=== PATIENT | female | born 1995 | race Caucasian/White ===

== ENCOUNTER 2024-03-28 12:23 | Emergency (ER) | payer OTHER ==
--- OUTSIDE RECORDS SUMMARY | 2024-03-28 12:29 | XMS REPORT | Continuity of Care Document ---
Author Name Unknown Address [address] [place] [address] Nicolás. [address] thconnect Address [address] [facility] Nicolás. 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 SPECIALIST 94 ON 9 [id number] 2022 00:00:00 [facility] [id number] 2019 00:00:00 Allergies, Adverse Reactions, Alerts Allergy Name Allergy Type Status Severity Reaction(s) Onset Date Inactive Date Treating Clinician Comments Source NO KNOWN ALLERGIE S Drug Class Active [facility] Social History Social Habit Start Date Stop Date Quantity Comments Source ASSERTION Possible Ashlee Gutiérrez - External Gender identity Emily Gutiérrez - External Sexual orientation Citlalli Gutiérrez - External Tobacco use and exposure 2023-11-27 00:00:00 2023-11-27 00:00:00 Smokeless tobacco non-user Ashlee Gutiérrez - External History of Social function 2023-11-27 00:00:00 2023-11-27 00:00:00 Ashlee Gutiérrez - External Sex 2022-02-14 16:04:31 2022-02-14 16:04:31 Female (finding) Ashlee Martinmalcomkaty Maria Lorene Sex assigned at 1995 00:00:00 1995 00:00:00 Ashlee Martinmalcomkaty Candace Paulson Smoking Status Start Date Stop Date Source Tobacco smoking consumption unknown Ashlee Martinmalcomkaty Paulson Never smoked tobacco Ashlee Paulson Medications Ordered Medication Name Filled Medication Name Start Date Stop Date Current Medication? Ordering Clinician Indication Dosage Frequency Signature (SIG) Comments Components Source Triamcinolo ne Acetonide 0.1 % apply externally Ointment 2023-02 00:00: 00 Yes [id number] Apply to affected areas twice daily for 1 month. Ashlee sanford Metronidazo le 500 MG oral Tablet 2023-02 00:00: 00 Yes [id number] Take 1 pill PO BID. Ashlee sanford Amoxicillin -Pot Clavulanate 875-125 MG oral Tablet 07-18 00:00: 00 Yes [id number] 1{tbl} Q.5D Take 1 tablet by mouth 2 times daily Ashlee sanford Pseudoeph-B romphen-DM 30-2-10 MG/5ML oral Syrup 07-18 00:00: 00 Yes [id number] 10mL Q.[id number] 3D Take 10 mL by mouth 3 times daily as needed Ashlee sanford TRIMETHOPRI M-POLYMYXIN B 10854-3.1 UNIT/ML-% ophthalmic Solution 07-18 00:00: 00 07-26 04:59 :00 No [id number] 9102 1[drp] Apply 1 drop to eye every 4 (four) hours for 7 days One drop every 4 hours for 7 days. Ashlee sanford neomycin-po lymyxin-hyd rocort 3.5 mg-10,000 unit/mL-1 % ear drops,susp INSTILL 4 DROPS INTO AFFECTED EAR(S) BY OTIC ROUTE 3 TIMES PER DAY X 7 DAYS MAY USE FOR BOTH EARS neomycin-po lymyxin-hyd rocort 3.5 mg-10,000 unit/mL-1 % ear drops,susp INSTILL 4 DROPS INTO AFFECTED EAR(S) BY OTIC ROUTE 3 TIMES PER DAY X 7 DAYS MAY USE FOR BOTH EARS No neomycin-p olymyxin-h ydrocort 3.5 mg-10,000 unit/mL-1 % ear drops,susp INSTILL 4 DROPS INTO AFFECTED EAR(S) BY OTIC ROUTE 3 TIMES PER DAY X 7 DAYS MAY USE FOR BOTH EARS [facility] prednisone 10 mg tablet TAKE 1 TABLET BY MOUTH TWICE A DAY DIRECTED prednisone 10 mg tablet TAKE 1 TABLET BY MOUTH TWICE A DAY DIRECTED No prednisone 10 mg tablet TAKE 1 TABLET BY MOUTH TWICE A DAY DIRECTED [facility] prednisone 20 mg tablet Take 1 tablet twice a day by oral route for 3 days. prednisone 20 mg tablet Take 1 tablet twice a day by oral route for 3 days. No 1 BID prednisone 20 mg tablet Take 1 tablet twice a day by oral route for 3 days. [facility] fluticasone propionate 50 mcg/actuati on nasal spray,suspe nsion 1 SPRAY TO EACH NOSTRIL TWICE DAILY NEEDED fluticasone propionate 50 mcg/actuati on nasal spray,suspe nsion 1 SPRAY TO EACH NOSTRIL TWICE DAILY NEEDED No fluticason e propionate 50 mcg/actuat ion nasal spray,susp ension 1 SPRAY TO EACH NOSTRIL TWICE DAILY NEEDED [facility] ibuprofen 600 mg tablet TAKE 1 TABLET BY MOUTH THREE TIMES A DAY WITH FOOD ibuprofen 600 mg tablet TAKE 1 TABLET BY MOUTH THREE TIMES A DAY WITH FOOD No ibuprofen 600 mg tablet TAKE 1 TABLET BY MOUTH THREE TIMES A DAY WITH FOOD [facility] meclizine 25 mg tablet TAKE 1 TABLET BY MOUTH THREE TIMES A DAY DIRECTED meclizine 25 mg tablet TAKE 1 TABLET BY MOUTH THREE TIMES A DAY DIRECTED No meclizine 25 mg tablet TAKE 1 TABLET BY MOUTH THREE TIMES A DAY DIRECTED [facility] Vital Signs Vital Name Observation Time Observation Value Comments S anisa BMI (Body Mass Index) 2023-07-22 00:00:00 24.5 kg/m2 [facility] BP Systolic 2023-07-22 00:00:00 134 mm[Hg] [facility] Body Weight 2023-07-22 00:00:00 2649.6 [oz_av] [facility] Height 2023-07-22 00:00:00 69 [in_i] [facility] BP Diastolic 2023-07-22 00:00:00 85 mm[Hg] [facility] Encounters Start Date/Time End Date/Time Encounter Type Admission Type Attending [facility] Care Facility Care Department Encounter ID Source 2024-01-08 11:30:00 2024-01-08 11:30:00 Outpatient SHALONDA FOSTER [id number] [facility] 2023-11-27 14:45:00 2023-11-27 14:45:00 Outpatient SHALONDA FOSTER [id number] [facility] 2023-09-01 10:30:00 2023-09-01 10:30:00 Outpatient BHARATHI KLINE [id number] [facility] 2023-08-12 11:30:00 2023-08-12 11:30:00 Outpatient BHARATHI KLINE [id number] [facility] 2023-07-22 00:00:00 2023-07-22 00:00:00 Anahy Lovett APRN, MSN, [facility]: [address] [place] [address], [address] [place] [id number] , Ph. [facility] [phone] [id number] [facility] 2022-12-14 00:00:00 2022-12-14 00:00:00 Outpatient GC_GCBZW_Ka diyala_S PRIV PRIV [id number] [facility] 2022-12-13 00:00:00 2022-12-13 00:00:00 Outpatient GC_GCBZW_Ka diyala_S PRIV PRIV [id number] [facility] 2022-07-19 09:40:00 2022-07-19 09:40:00 Outpatient TESTING, SI ASHLEE LUQUE [id number] [facility] 2022-07-18 11:30:00 2022-07-18 11:30:00 Outpatient MARSHA CLAROS [id number] Ashlee Gutiérrez 2020-01-26 16:00:00 2020-01-26 16:00:00 Outpatient RYAN IRIZARRY [facility] [id number] [facility] 2019-10-30 13:40:00 2019-10-30 13:40:00 Outpatient RONNIE LI [facility] [id number] [facility]
[2024-03-28] MEDS ORDERED: NA CHLORIDE 0.9% 1,000 ML ONE (13:21)
[2024-03-28] MEDS ORDERED: DIPHENHYDRAMINE 50 MG/ML VIAL ONE (13:21)
[2024-03-28] MEDS ORDERED: METOCLOPRAMIDE 10 MG/2mL INJ ONE (13:21)
[2024-03-28] MEDS ORDERED: KETOROLAC 30 MG/ML INJ ONE (13:21)
[2024-03-28] MEDS ORDERED: NA CHLORIDE 0.9% 50 ML ONE (13:22)
[2024-03-28 13:24] LABS: Absolute Lymphocytes (CBC) 0.9 K/uL (0.7-4.9); Absolute Monocytes 0.3 K/uL (0.1-1.3); Absolute Neutrophil 3.5 K/uL (1.8-8.0); Eosinophils % 0.8 % (0-4.4); Hematocrit 38.3 % (36.0-45.0); Hemoglobin 13.3 g/dL (12.0-15.0); Lymphocytes % 18.1 % (15.3-44.8); MCH 31.3 pg (27.0-35.0); MCHC 34.6 g/dL (32.0-36.0); MCV 90.4 fL (80-100); MPV 7.8 fL (7.6-11.3); Monocytes % 5.7 % (3.3-12.3); Neutrophils % 74.4 % (41.7-73.7); Nucleated Red Blood Cells % 0.1 % (0-0); Platelets 311 thou/uL (152-406); RBC Red Blood Cell Count 4.24 M/uL (3.86-4.86); Red Cell Distribution Width 12.6 % (12.1-15.2)
[2024-03-28 13:33] LABS: PT Prothrombin Time 12.4 SECONDS (9.4-12.5); PTT, Activated Partial Thromb 31.8 SECONDS (24.3-36.9); Protime INR 1.18
[2024-03-28 13:44] LABS: ALT/SGPT 23 U/L (13-56); AST/SGOT 15 U/L (15-37); Albumin 4.2 g/dL (3.4-5.0); Albumin/Globulin Ratio 1.3 (1.1-1.8); Alkaline Phosphatase 46 U/L (45-117); BUN Blood Urea Nitrogen 15 mg/dL (7-18); Bicarbonate 25 mEq/L (21-32); Bilirubin Direct 0.2 mg/dL (0-0.2); Bilirubin Indirect, Calculated 0.4 mg/dL (0.2-0.8); Bilirubin Total 0.6 mg/dL (0.2-1.0); Globulin 3.3 g/dL (2.3-3.5); Glomerular Filtration Rate 93 ml/min (=/>90); Glucose Level 92 mg/dL (74-106); Magnesium 2.1 mg/dL (1.6-2.4); Protein, Total 7.5 g/dL (6.4-8.2); Sodium Level 137 mEq/L (136-145); Troponin High Sensitivity < 3.0 pg/mL (<58.9)
[2024-03-28 13:55] LABS: Specific Gravity 1.022 (1.005-1.030)
[2024-03-28 13:56] LABS: Specific Gravity 1.022 (1.005-1.030); Sqamous Epithelial <5 /HPF (None Seen); Urine Bacteria None Seen /HPF (<20); Urine Bilirubin NEGATIVE (Negative); Urine Blood Negative (Negative); Urine Clarity Clear (Clear); Urine Color Light-Yellow (Yellow); Urine Culture Reflex Order NOT NEEDED; Urine Glucose NEGATIVE (Negative); Urine Ketones NEGATIVE (Negative); Urine Microscopic Reflex YN ORDER UMIC; Urine Nitrite NEGATIVE (Negative); Urine Protein NEGATIVE (Negative); Urine RBC None Seen /HPF (None Seen); Urine Urobilinogen Normal (Normal); Urine WBC <5 /HPF (<5)
--- NOTE | 2024-03-28 14:00 | RAD REPORT ---
EXAM: CT brain without contrast HISTORY: DIZZINESS COMPARISON: None TECHNIQUE: Multiple contiguous axial images were obtained and a CT of the brain without contrast. Sag ittal and coronal reformats were performed. One or more of the following dose reduction techniques were used: Automated exposure control, adjust ment of the mA and/or kV according to patient size, and/or iterative reconstruction. FINDINGS: No evidence of hydrocephalus, intracranial hemorrhage, or extra-axial fluid collection. The brain is normal in morphology. No evidence of midline shift or areas of brain edema. The calvarium is intact. The visualized paranasal sinuses and mastoid air cells are essentially clear . IMPRESSION: No evidence of acute intracranial abnormality.
[2024-03-28 14:13] LABS: Barbiturates NEGATIVE (NEGATIVE); Benzodiazepines NEGATIVE (NEGATIVE); Cocaine NEGATIVE (NEGATIVE); METHAMPHETAM NEGATIVE (NEGATIVE); Methadone NEGATIVE (NEGATIVE); Opiates NEGATIVE (NEGATIVE); Phencyclidine NEGATIVE (NEGATIVE); THC Cannibis NEGATIVE (NEGATIVE)
[2024-03-28] MEDS ORDERED: ONDANSETRON 4 MG/2 ML VIAL ONE (14:37)
--- NOTE | 2024-03-28 15:38 | ER ---
Nurse's Notes [facility] Name: Adri Marcos Age: 29 yrs Sex: Female : 1995 Arrival Date: 03/28/2024 Time: 12:23 Bed 3 Private MD: Diagnosis: Dizziness and giddiness Presentation: 03/28 12:49 Chief complaint: Patient states: dizziness, vertigo X 10 days, has been seen at urgent iw care twice, they did blood work and gave her meclizine and a scopolamine patch , today she felt worse and felt like she couldn't drive , also feeling nauseous and has a mild headache. Coronavirus screen: At this time, the client does not indicate any symptoms associated with coronavirus-19. Ebola Screen: No symptoms or risks identified at this time. Initial Sepsis Screen: Does the patient meet any 2 criteria? No. Patient's initial sepsis screen is negative. Does the patient have a suspected source of infection? No. Patient's initial sepsis screen is negative. Risk Assessment: Do you want to hurt yourself or someone else? Patient reports no desire to harm self or others. Onset of symptoms was March 19, 2024. 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 - Infectious Disease History:: Denies. - Social history:: Smoking status: Patient denies any tobacco usage or history of. Patient/guardian denies using. Screenin:39 [facility] ED Fall Risk Assessment (Adult) History of falling in the last 3 months, ph including since admission No falls in past 3 months (0 pts) Confusion or Disorientation No (0 pts) Intoxicated or Sedated No (0 pts) Impaired Gait No (0 pts) Mobility Assist Device Used No (0 pt) Altered Elimination No (0 pt) Score/Fall Risk Level 0 - 2 = Low Risk Oriented to surroundings, Maintained a safe environment, Hourly rounding (assess needs \T\ fall precautionary measures) done. Abuse screen: Denies threats or abuse. Denies injuries from another. Nutritional screening: No deficits noted. Tuberculosis screening: No symptoms or risk factors identified. Assessment: 13:39 General: Appears in no apparent distress. comfortable, well groomed, Behavior is calm, ph cooperative, appropriate for age. Pain: Complains of pain in left jehovah's witness. Neuro: Level of Consciousness is awake, alert, obeys commands, Oriented to person, place, time, situation, Reports dizziness. Cardiovascular: Capillary refill < 3 seconds in bilateral fingers Patient's skin is warm and dry. Respiratory: Airway is patent Respiratory effort is even, unlabored, Respiratory pattern is regular, symmetrical. GI: Abdomen is non-distended, Reports nausea. : No signs and/or symptoms were reported regarding the genitourinary system. Derm: Skin is pink, warm \T\ dry. Vital Signs: 12:51 BP 129 / 57; Pulse 77; Resp 16; Temp 98.1; Pulse Ox 100% on R/A; Weight 74.84 kg; iw Height 5 ft. 9 in. ; 14:39 BP 118 / 69; Pulse 64; Resp 18; Pulse Ox 100% on R/A; ph 15:33 BP 119 / 59; Pulse 67; Resp 18; Pulse Ox 97% on R/A; ph 12:51 Body Mass Index 24.37 (74.84 kg, 175.26 cm) iw ED Course: 12:27 Patient arrived in ED. im 12:32 Merry Jc PA-C is PHCP. sb4 12:32 Boo Palomares MD is Attending Physician. sb4 12:49 Talia Alvarez, GONZÁLEZ is Primary Nurse. iw 12:51 Triage completed. iw 13:11 Arm band placed on. iw 13:34 Basic Metabolic Panel Sent. ph 13:34 Hepatic Function Sent. ph 13:34 Magnesium Sent. ph 13:38 Patient has correct armband on for positive identification. Bed in low position. Call ph light in reach. Side rails up X 1. Client placed on continuous cardiac and pulse oximetry monitoring. NIBP monitoring applied. pvc monitor on. Door closed. Noise minimized. 13:38 Test, Urine Sent. ph 13:38 Troponin High Sensitivity Sent. ph 13:38 UDS Sent. ph 13:38 Urinalysis w/ reflexes Sent. ph 13:38 Initial lab(s) drawn, by me, sent to lab. Urine collected: clean catch specimen, clear, ph EKG done, by ED staff, reviewed by Merry Jc PA-C. Inserted saline lock: 22 gauge in left antecubital area, using aseptic technique. Blood collected. Flushed with 10 mL NS. 13:39 Primary Nurse role handed off by Talia Alvarez, RN ph 13:39 Valentina Andrew, RN is Primary Nurse. ph 13:40 No provider procedures requiring assistance completed. ph 13:50 Head Brain Wo Cont CT In Process Unspecified. EDMS 15:37 Wilfred Morales MD is Referral Physician. sb4 15:37 Alicia Ogden MD is Referral Physician. sb4 15:58 Provided Education on: d/c instructions . iw 15:58 IV discontinued, intact, bleeding controlled, No redness/swelling at site. Pressure iw dressing applied. Administered Medications: 13:34 Drug: NS 0.9% IV 1000 ml IV at 1 bolus Per protocol; to be given as a bolus over 60 ph minutes Route: IV; Rate: 1 bolus; Site: left antecubital; 14:35 Follow up: Response: No adverse reaction; IV Status: Completed infusion; IV Intake: ph 1000ml 13:34 Drug: Ketorolac IVP 15 mg IVP once Route: IVP; Site: left antecubital; ph 14:12 Follow up: Response: No adverse reaction ph 13:34 Drug: metoCLOPramide IVP 10 mg IVP once; over 1 to 2 minutes Route: IVP; Site: left ph antecubital; 14:12 Follow up: Response: No adverse reaction ph 13:34 Drug: diphenhydrAMINE IVP 25 mg IVP once Route: IVP; Site: left antecubital; ph 14:12 Follow up: Response: No adverse reaction ph 14:39 Drug: Ondansetron IVP 4 mg IVP once; over 2 minutes Route: IVP; Site: left antecubital; ph 15:33 Follow up: Response: No adverse reaction ph Medication: 13:40 VIS not applicable for this client. ph Intake: 14:35 IV: 1000ml; Total: 1000ml. ph Outcome: 15:37 Discharge ordered by . sb4 15:58 Discharged to home ambulatory, iw 15:58 Condition: good 15:58 Discharge instructions given to patient, family, Instructed on discharge instructions, follow up and referral plans. medication usage, Demonstrated understanding of instructions, follow-up care, medications, Prescriptions given X 1, 15:59 Patient left the ED. Signatures: Dispatcher [employer] Talia Edmond RN RN iw Hall, Patricia, RN RN ph Brown, Sophia, PAHerlinda PA-Deon sb4 Cely Duong
--- NOTE | 2024-03-28 15:38 | EDPHYS ---
Physician Documentation [facility] Name: Adri Marcos Age: 29 yrs Sex: Female : 1995 Arrival Date: 03/28/2024 Time: 12:23 Bed 3 Private MD: ED Physician Boo Palomares HPI: 03/28 13:08 This 29 yrs old Female presents to ER via Wheelchair with complaints of Dizziness, sb4 Nausea, Headache. 13:08 The patient presents with feeling off balance. Onset: The symptoms/episode sb4 began/occurred 10 day(s) ago. Context: just prior to the episode the patient experienced no apparent symptoms. Modifying factors: The symptoms are alleviated by nothing, the symptoms are aggravated by nothing. Associated signs and symptoms: Pertinent positives: blurred vision, headache, nausea, Pertinent negatives: combativeness, confusion, focal weakness, numbness, palpitations, , seizure, shortness of breath, syncope, tingling. dizziness x 10 days. has been to urgent care twice. was prescribed meclizine the first time which initially helped but is not anymore. second time had blood work done that was all WNL, diagnosed with vertigo, given scopolamine patch which did not help but just gave her tremors. states now she has a headache and nausea as well. denies any prior issues with dizziness. is healthy otherwise. 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 - Infectious Disease History:: Denies. - Social history:: Smoking status: Patient denies any tobacco usage or history of. Patient/guardian denies using. ROS: 13:08 Constitutional: Negative for fever, chills, and weight loss, sb4 13:08 Abdomen/GI: Positive for nausea, 13:08 Neuro: Positive for dizziness, headache, 13:08 All other systems are negative, Exam: 13:08 Constitutional: This is a well developed, well nourished patient who is awake, alert, sb4 and in no acute distress. Head/Face: Normocephalic, atraumatic. Eyes: Extra-ocular motions intact. Periorbital areas with no swelling, redness, or edema. ENT: Mucous membranes moist. Cardiovascular: Regular rate and rhythm with a normal S1 and S2. Respiratory: No increased work of breathing, no retractions or nasal flaring. Abdomen/GI: Soft, non-tender, no distension. Skin: Warm, dry with normal turgor. Normal color with no rashes, no lesions, and no evidence of cellulitis. MS/ Extremity: Pulses equal, no cyanosis. Neurovascular intact. Full, normal range of motion. Neuro: Awake and alert, GCS 15, oriented to person, place, time, and situation. Motor strength 5/5 in all extremities. Sensory grossly intact. Vital Signs: 12:51 BP 129 / 57; Pulse 77; Resp 16; Temp 98.1; Pulse Ox 100% on R/A; Weight 74.84 kg; iw Height 5 ft. 9 in. ; 14:39 BP 118 / 69; Pulse 64; Resp 18; Pulse Ox 100% on R/A; ph 15:33 BP 119 / 59; Pulse 67; Resp 18; Pulse Ox 97% on R/A; ph 12:51 Body Mass Index 24.37 (74.84 kg, 175.26 cm) iw MDM: 12:46 Medical Screening Exam initiated sb4 17:11 Data reviewed: vital signs, nurses notes, lab test result(s), EKG, radiologic studies, sb4 and as a result, I will discharge patient. Counseling: I had a detailed discussion with the patient and/or guardian regarding the historical points, exam findings, and any diagnostic results supporting the discharge/admit diagnosis, lab results, radiology results, the need for outpatient follow up, an ENT specialist, a neurologist, to return to the emergency department if symptoms worsen or persist or if there are any questions or concerns that arise at home. ED course: dizziness, headache, and nausea have resolved. patient ambulated to the restroom without difficulty, steady gait. workup is unremarkable. will safely discharge patient home with return precautions and ENT/neuro follow up. . 03/28 12:59 Order name: Basic Metabolic Panel; Complete Time: 13:46 sb4 03/28 12:59 Order name: CBC with Diff; Complete Time: 13:33 sb4 03/28 12:59 Order name: Hepatic Function; Complete Time: 13:46 sb4 03/28 12:59 Order name: Magnesium; Complete Time: 13:46 sb4 03/28 12:59 Order name: Test, Urine; Complete Time: 13:55 sb4 03/28 12:59 Order name: Protime (+inr); Complete Time: 13:35 sb4 03/28 12:59 Order name: Ptt, Activated; Complete Time: 13:35 sb4 03/28 12:59 Order name: Troponin High Sensitivity; Complete Time: 13:46 sb4 03/28 12:59 Order name: UDS; Complete Time: 14:16 sb4 03/28 12:59 Order name: Urinalysis w/ reflexes; Complete Time: 13:56 sb4 03/28 12:59 Order name: Head Brain Wo Cont CT; Complete Time: 14:08 sb4 03/28 12:59 Order name: Cardiac monitoring; Complete Time: 13:18 sb4 03/28 12:59 Order name: EKG - Nurse/Tech; Complete Time: 13:34 sb4 03/28 12:59 Order name: IV Saline Lock; Complete Time: 13:18 sb4 03/28 12:59 Order name: Labs collected and sent; Complete Time: 13:18 sb4 03/28 12:59 Order name: O2 Per Protocol; Complete Time: 13:18 sb4 03/28 12:59 Order name: O2 Sat Monitoring; Complete Time: 13:18 sb4 EC:50 Rate is 68 beats/min. Rhythm is regular, Normal Sinus Rhythm. DE interval is normal at sb4 132 msec. QRS interval is normal at 82 msec. QT interval is normal at 380 msec. No Q waves. T waves are Normal. No ST changes noted. Clinical impression: Normal ECG and No evidence of ischemia. Interpreted by me. Reviewed by me. Administered Medications: 13:34 Drug: NS 0.9% IV 1000 ml IV at 1 bolus Per protocol; to be given as a bolus over 60 ph minutes Route: IV; Rate: 1 bolus; Site: left antecubital; 14:35 Follow up: Response: No adverse reaction; IV Status: Completed infusion; IV Intake: ph 1000ml 13:34 Drug: Ketorolac IVP 15 mg IVP once Route: IVP; Site: left antecubital; ph 14:12 Follow up: Response: No adverse reaction ph 13:34 Drug: metoCLOPramide IVP 10 mg IVP once; over 1 to 2 minutes Route: IVP; Site: left ph antecubital; 14:12 Follow up: Response: No adverse reaction ph 13:34 Drug: diphenhydrAMINE IVP 25 mg IVP once Route: IVP; Site: left antecubital; ph 14:12 Follow up: Response: No adverse reaction ph 14:39 Drug: Ondansetron IVP 4 mg IVP once; over 2 minutes Route: IVP; Site: left antecubital; ph 15:33 Follow up: Response: No adverse reaction ph Disposition: 03/29 09:05 Co-signature as Attending Physician, Boo Palomares MD I reviewed the patient's care rn provided by the Advanced Practice Provider and agree with the diagnosis and treatment plan. Disposition Summary: 03/28/24 15:37 Discharge Ordered Notes: Location: Home sb4 Problem: an ongoing problem sb4 Symptoms: have improved sb4 Condition: Stable sb4 Diagnosis - Dizziness and giddiness sb4 Followup: sb4 - With: Wilfred Morales MD - When: 1 week - Reason: Further diagnostic work-up, Recheck today's complaints, Re-evaluation by your physician Followup: sb4 - With: Alicia Ogden MD - When: 1 week - Reason: Further diagnostic work-up, Recheck today's complaints, Re-evaluation by your physician Discharge Instructions: - Discharge Summary Sheet sb4 - Vertigo, Futw-[id number]-Qfjz sb4 - Dizziness, Kcey-gg-Xjiw sb4 Forms: - Patient Portal Instructions sb4 - Leadership Thank You Letter sb4 Prescriptions: - Meclizine 25 mg Oral Tablet - take 1 tablet ORAL route every 8 hours As needed; 30 tablet; Refills: 0, sb4 Product Selection Permitted Signatures: Dispatcher [employer] Talia Edmond RN RN iw Nieto, Roman, MD MD rn Hall, Patricia, RN RN ph Brown, Sophia, DAVID PAHerlinda sb4 Corrections: (The following items were deleted from the chart) 03/28 12:59 12:59 BASIC METABOLIC PANEL+C.LAB.BRZ ordered. EDMS EDMS 12:59 12:59 CBC+H.LAB.BRZ ordered. EDMS EDMS 12: 12:59 HEPATIC FUNCTION+C.LAB.BRZ ordered. EDMS EDMS 12:59 12:59 MAGNESIUM+C.LAB.BRZ ordered. EDMS EDMS 12:59 12:59 Test, Urine+UC.LAB.BRZ ordered. EDMS EDMS 12:59 12:59 PROTIME (+INR)+COAG.LAB.BRZ ordered. EDMS EDMS 12:59 12:59 PTT, ACTIVATED+COAG.LAB.BRZ ordered. EDMS EDMS 12:59 12:59 Troponin High Sensitivity+C.LAB.BRZ ordered. EDMS EDMS 12:59 12:59 URINE DRUG SCREEN+UC.LAB.BRZ ordered. EDMS EDMS 12:59 12:59 Urinalysis+U.LAB.BRZ ordered. EDMS EDMS 15:52 12:59 Orthostatics ordered. sb4 jb4
[2024-03-28 16:21] VITALS: TEMP 98.1
[2024-03-28 16:24] VITALS: BP 119/59; O2SAT 97
--- NOTE | 2024-03-30 12:47 | EKG ---
Test Date: 2024-03-28 Test Time: 13:25:37 Senior Application Software Engineer: PHAN MEASUREMENT RESULTS: Intervals: Rate: 68 NM: 132 QRSD: 82 QT: 380 QTc: 404 [place]: P: 73 NM: 132 QRS: 80 T: 60 INTERPRETIVE STATEMENTS: Normal sinus rhythm with sinus arrhythmia Normal ECG No previous ECG available for comparison Electronically Signed On 03-30-24 12:42:59 ADMISSIONS ASSISTANT by Selvin Nixon
== END 2024-03-28 15:59 | disposition home or self-care (01) ==
LOC: ER 12:23
DX: R42 Dizziness and giddiness (principal); R51.9 Headache, unspecified
CPT/HCPCS: 96361; 93005; 85025; 81001; 80048; 36415; 83735; 81025; 85610; 80076; 85730; 84484; 80307; 70450; 96375; 96374; 99285; J2765; J1200; J2405; J7030